=== PATIENT | male | born 1955 | race Hispanic/Latino ===

== ENCOUNTER 2025-05-17 06:49 | Observation (INO) | payer MEDICARE ==
[2025-05-14 10:10] LABS: BASOPHILS % 0.5 % (0.0-1.0); EOSINOPHILS % 0.7 % (0.0-6.0); LYMPHOCYTES % 18.9 % (18.0-39.1); MONOCYTES % 6.8 % (4.4-11.3); NEUTROPHILS % 71.6 % (38.7-80.0); RED CELL DISTRIBUTION WIDTH 12.9 % (11.7-14.4)
[2025-05-14 10:32] LABS: EST GLOMERULAR FILTRATION RATE 67.0 ML/MIN (>=60)
[~2025-05-17 06:49] MED LIST: ALTOPREV40 MG PO; FLOMAX0.4 MG PO; HYDROCHLOROTHIA25 MG PO; METFORMIN HCL500 M1 PO
[2025-05-17] MEDS: DEXAMETHASONE SOD PHOS 10 MG/1 ML VIAL ONE (07:23)
[2025-05-17] MEDS: GABAPENTIN 300 MG CAP ONE (07:23)
[2025-05-17] MEDS: CEFAZOLIN SODIUM 2 GM ONE (07:23)
[2025-05-17] MEDS: CELECOXIB 200 MG CAP ONE (07:24)
[2025-05-17] MEDS: LACTATED RINGER'S 1,000 ML ONE (07:25)
[2025-05-17] MEDS ORDERED: ROPIVACAINE/EPI/CLONIDINE/KET 50 ML SYRINGE INJ ONE (08:00)
[2025-05-17] MEDS ORDERED: SEVOFLURANE INHAL SOLN 250 ML PEN BTL ONE (08:40)
[2025-05-17] MEDS ORDERED: ACETAMINOPHEN 1000 MG/100 ML 100 ML IV ONE (08:40)
[2025-05-17] MEDS ORDERED: PROPOFOL IV EMULSION 10 MG/ML 20 ML VIAL ONE (08:40)
[2025-05-17] MEDS ORDERED: FENTANYL CITRATE/PF 100MCG/2 ML INJ ONE ×2 (08:40→09:34)
[2025-05-17] MEDS ORDERED: LIDOCAINE HCL 2% LOCAL INJ 5 ML SDV VIAL INJ ONE (08:40)
[2025-05-17] MEDS ORDERED: BUPIVACAINE 0.5%/EPI 30 ML SDV INJ ONE (09:34)
[2025-05-17] MEDS ORDERED: ONDANSETRON HCL INJ 2MG/ML 2ML 2 MG/ML VIAL ONE (10:00)
[2025-05-17] MEDS ORDERED: PHENYLEPHRINE HCL 1% 10 MG/ML VIAL ONE (10:11)
[2025-05-17] MEDS ORDERED: LACTATED RINGER'S 1,000 ML ONE (11:02)
[2025-05-17] MEDS ORDERED: DOCUSATE SODIUM 100 MG CAP PO PRN (11:15)
[2025-05-17] MEDS ORDERED: DIPHENHYDRAMINE HCL INJ 50 MG/ML VIAL IV PRN (11:15)
[2025-05-17] MEDS ORDERED: ONDANSETRON HCL INJ 2MG/ML 2ML 2 MG/ML VIAL IV PRN (11:15)
[2025-05-17] MEDS ORDERED: HYDROCODONE/APAP 7.5MG-325MG 1 EA TAB PO PRN (11:15)
[2025-05-17] MEDS: HYDROCODONE/APAP 7.5MG-325MG 1 EA TAB PO ONE (12:50)
[2025-05-17 15:31] VITALS: BP 109/57; PULSE 63; RESP 18; TEMP 99.2; O2SAT 96
[2025-05-17 16:10] VITALS: BP 113/62; PULSE 68; RESP 18; TEMP 99.5; O2SAT 98
[2025-05-17] MEDS: HYDROCODONE/APAP 5MG-325MG TAB PO PRN (16:52)
[2025-05-17] MEDS: CELECOXIB 200 MG CAP PO SCH (16:52)
[2025-05-17] MEDS: SODIUM CHLORIDE 0.9% 1000ML 1,000 ML IV SCH (16:53)
[2025-05-17 20:00] VITALS: BP 103/68; PULSE 62; RESP 20; TEMP 98.7; O2SAT 97
[2025-05-17] MEDS: ASPIRIN 325 MG TAB PO SCH (20:52)
[2025-05-17 21:00] VITALS: BP 103/68; PULSE 62; RESP 20; TEMP 98.7; O2SAT 97
[2025-05-17] MEDS ORDERED: DEXTROSE 50% SYRINGE 50 ML IV PRN (23:45)
[2025-05-18] VITALS (7 sets, daily range): BP systolic 94–123; BP diastolic 57–69; PULSE 61–70; RESP 18–20; TEMP 97–98.6; O2SAT 95–98
[2025-05-18] MEDS: TAMSULOSIN HCL 0.4 MG CAP PO SCH (00:12)
[2025-05-18 06:04] LABS: EST GLOMERULAR FILTRATION RATE 64.0 ML/MIN (>=60)
[2025-05-18] MEDS: INSULIN LISPRO 100 UNIT/1 ML 3ML VIAL SQ SCH (07:30)
[2025-05-18] MEDS ORDERED: ACETAMINOPHEN 1000 MG/100 ML IV PRN (11:15)
[2025-05-18] MEDS ORDERED: ONDANSETRON HCL 4 MG ORAL DISINTEGRATING TAB PO PRN (11:45)
== END 2025-05-18 13:30 | disposition home health service (06) ==
LOC: OR 06:49 → PACU V 11:10 → MED/SURG2 16:00
PROVIDERS: ADMIT Specialist; ATTEND Specialist
DX: M17.0 Bilateral primary osteoarthritis of knee (principal); I10 Essential (primary) hypertension; E11.9 Type 2 diabetes mellitus without complications; E78.5 Hyperlipidemia, unspecified; N40.0 Benign prostatic hyperplasia without lower urinary tract symptoms; Z79.84 Long term (current) use of oral hypoglycemic drugs; Z01.810 Encounter for preprocedural cardiovascular examination; Z01.812 Encounter for preprocedural laboratory examination; Z01.818 Encounter for other preprocedural examination
CPT/HCPCS: 36415; 71046; 80048; 82948; 85014; 85018; 85025; 86850; 86900; 93005; 94799; C1713; C1776; G0378; J0690; J1100; J2003; J2371; J2405; J7030